=== PATIENT | female | born 1975 | race Caucasian/White ===

== ENCOUNTER 2017-03-12 07:55 | Emergency (ER) | payer OTHER ==
[2017-03-12 08:06] VITALS: BP 125/88
[2017-03-12] MEDS ORDERED: Fluorescein Sodium TOPICAL* 1 MG TEST ONE (09:14)
[2017-03-12] MEDS ORDERED: Tetracaine 0.5% OPTH.SOL 4 ML* 1 DROP BTL ONE (09:14)
[2017-03-12] MEDS ORDERED: BSS OPTH.SOL* BTL ONE (09:14)
[2017-03-12] MEDS ORDERED: HYDROcodone/ACETAMIN 5-325 MG* 1 TAB PO ONE (09:33)
--- NOTE | 2017-03-12 15:12 | UC ---
I, Masoud,Jim, scribed for Natali Bains DO on 03/12/17 at 0914 . Eye Complaint HPI - HPI Summary HPI Summary: This 41 y/o female presents to [facility] for 9/10 bilat eye pain since a day ago and worse since last night. Positive discharge, FB senstion, rhinorrhea, and mild cough. Pain was initially located in right eye, and now it is located bilat eyes. Negative sore throat or fever. Pt initially dismissed the discomfort as pink eye, but became concerned when pt attempted to wash eyes and was not able to open eyes due to pain. Eye movement, blinking, and even tear secretion make eye pain worse. She is still unable to open both eyes and is tearful at time of initial evaluation. PMHx includes DM type II and groin abscess. FHx is positive for DM. Pt is current heavy daily smoker. - History of Current Complaint Chief Complaint: UCEye Stated Complaint: EYE ISSUE Time Seen by Provider: 03/12/17 08:37 Hx Obtained From: Patient, Medical Records Hx Last Menstrual Period: 02/27 Onset/Duration: Gradual Onset, Still Present Timing: Constant Severity Initially: Moderate Severity Currently: Moderate Pain Intensity: 9 Pain Scale Used: 0-10 Numeric Location of Injury: Conjunctiva, Eye Lid (upper) Character: Sharp Aggravating Factor(s): Light, Blinking Alleviating Factor(s): Nothing Associated Signs And Symptoms: Positive: Photophobia, Drainage (Clear), Drainage (Purulent). Negative: Vision Impairment Bilateral, Fever, Swelling - Risk Factors Penetrating Injury Risk Factor: Negative - Allergies/Home Medications Allergies/Adverse Reactions: Allergies Allergy/AdvReac Type Severity Reaction Status Date / Time Fish Allergy Allergy Intermediate Hives Verified 05/14/16 19:38 PMH/Surg Hx/FS Hx/Imm Hx Endocrine History Of: Reports: Diabetes - type 2 since child Cardiovascular History Of: Denies: Hypertension, Congestive Heart Failure GI/ History Of: Denies: Renal Disease - Surgical History Surgical History: Yes Surgery Procedure, Year, and Place: tubal ligation - Family History Known Family History: Positive: Diabetes - positive to father Negative: Cardiac Disease, Hypertension - Social History Alcohol Use: None Substance Use Type: None Smoking Status (MU): Heavy Every Day Tobacco Smoker Amount Used/How Often: 1/2 ppd Have You Smoked in the Last Year: Yes Household Exposure Type: Cigarettes Cessation Counseling: Patient Advised to Stop Review of Systems Constitutional: Negative, Chills Skin: Negative Eyes: Negative ENT: Nasal Discharge, Other - eye pain bilat Respiratory: Cough Cardiovascular: Negative Gastrointestinal: Negative Genitourinary: Negative Motor: Negative Neurovascular: Negative Musculoskeletal: Negative Neurological: Negative Psychological: Negative All Other Systems Reviewed And Are Negative: Yes Physical Exam Triage Information Reviewed: Yes Appearance: Well-Appearing, Well-Nourished, Pain Distress - MOD Vital Signs: Initial Vital Signs Temp 97.5 F 03/12/17 08:01 Pulse 85 03/12/17 08:01 Resp 18 03/12/17 08:01 BP 125/88 03/12/17 08:01 Pulse Ox 97 03/12/17 08:01 Vital Signs Reviewed: Yes Eye Exam: Other - examined after tetracaine 0.5 %, which significantly alleviate the pain. Fluorescein stain exam indicates feint oval shape of stain uptake that does not move or change with blinking . Eyes: Positive: Conjunctiva Inflamed, Discharge - CLEAR ENT: Positive: Hearing grossly normal. Negative: Muffled/hoarse voice Neck exam: Normal Neck: Positive: Supple Respiratory: Positive: Lungs clear, Normal breath sounds, No respiratory distress Cardiovascular: Positive: RRR, No Murmur Musculoskeletal Exam: Normal Musculoskeletal: Positive: Strength Intact Neurological: Positive: Alert, Muscle Tone Normal Psychological: Positive: Age Appropriate Behavior Skin Exam: Normal Re-Evaluation - Re-Evaluation First Eval Re-Evaluation Time: 09:35 Comment: Plan of care involving outpatient follow up at [facility] at 1130 AM is discussed with pt, and she is agreeable. Eye Complaint Course/Dx - Course Course Of Treatment: Medication list reviewed and confirmed. - Differential Dx/Diagnosis Differential Diagnosis/HQI/PQRI: Conjunctivitis, Corneal Abrasion, Foreign Body , Uveitis Provider Diagnoses: CORNEAL ABRASION, CONJUNCTIVITS - Physician Notification/Consults Discussed Patient Care With: Dr. Bowles (Certified Fire Investigator) at 0925 AM Discharge - Discharge Plan Condition: Stable Disposition: HOME Patient Education Materials: Corneal Abrasion (ED), Eye Pain (ED), Conjunctivitis (ED) Referrals: Navjot Gonzalez MD [Primary Care Provider] - If Needed Adi Stallings MD [Medical Doctor] - (YOU HAVE AN APPOINTMENT AT 11:30AM TODAY FOR FURTHER EVALUATION.) Additional Instructions: Oral narcotic given: You've been given an oral narcotic pain medication. The effects may begin 30 minutes to an hour after swallowing the medicine. You should have significant pain relief. The effects will usually last at least four hours. Most oral narcotics contain a dose of acetaminophen (Tylenol). Don't take any other acetaminophen-containing medicines until you've discussed it with the doctor. This drug is a narcotic -- it will impair your judgment, slow your reaction time, and make you sleepy. Narcotics also can cause nausea and constipation. If you feel sick, you should eat. A full stomach reduces the nausea that pain pills can cause. You should not drive or work with machinery (including blenders, knives, lawn mowers or sewing machines) for six to eight hours. Don't do anything requiring mental alertness until the effects of the medication are gone. Do not take any alcohol or sedatives, and don't use any other medication without checking with your physician. The documentation as recorded by the Masoud juarez Soohyun accurately reflects the service I personally performed and the decisions made by me, Natali Bains DO.
== END 2017-03-12 09:45 | disposition home or self-care (01) ==
LOC: UCEAST 07:55
DX: S05.00XA Injury of conjunctiva and corneal abrasion without foreign body, unspecified eye, initial encounter (principal); H10.9 Unspecified conjunctivitis; X58.XXXA Exposure to other specified factors, initial encounter
CPT/HCPCS: 99212; A9270-GY; G0463

== ENCOUNTER 2017-05-23 03:49 | Emergency (ER) | payer OTHER ==
[2017-05-23] MEDS ORDERED: Ondansetron INJ* 2 MG/ML VIAL IV ONE (04:56)
[2017-05-23] MEDS ORDERED: HYDROmorphone* 1 MG/ML 1 ML SYR IV ONE (04:56)
[2017-05-23] MEDS ORDERED: NS 0.9% 1000 ML* 2,000 ML IV ONE (04:56)
[2017-05-23 05:30] LABS: Hematocrit 34 % (35-47); Hemoglobin 11.6 g/dl (12.0-16.0); Mean Corpuscular HGB Conc 34 g/dl (31-36); Mean Corpuscular Hemoglobin 30 pg (27-31); Mean Corpuscular Volume 88 fL (80-97); Mean Platelet Volume 7 um3 (7.4-10.4); Red Cell Distribution Width 14 % (10.5-15); White Blood Count 9.4 10^3/ul (3.5-10.8)
[2017-05-23 05:47] LABS: Albumin 3.2 g/dL (3.2-5.2); BUN/Creatinine Ratio 20.6 (8-20); C Reactive Protein 9.85 mg/L (< 5.00); Calcium 8.7 mg/dL (8.6-10.3); EGFR African American 134.6 (>60); EGFR Non-African American 104.7 (>60); Globulin 2.7 g/dL (2-4); Total Bilirubin 0.3 mg/dL (0.2-1.0); Total Protein 5.9 g/dL (6.4-8.9)
[2017-05-23] MEDS ORDERED: Iodixanol* (CONTRAST) 320 MG/ML 100 ML SDV IV ONE (05:49)
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
[2017-05-23 08:48] VITALS: BP 118/76
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
== END 2017-05-23 08:00 | disposition home or self-care (01) ==
LOC: ED 03:49
DX: E11.628 Type 2 diabetes mellitus with other skin complications (principal); L02.31 Cutaneous abscess of buttock; L03.317 Cellulitis of buttock; F17.210 Nicotine dependence, cigarettes, uncomplicated
CPT/HCPCS: 10060; 36415; 74177; 80053; 83605; 83690; 85025; 86140; 87070; 87205; 87640; 87641; 96360; 96374; 96375; 99283; J1170; J2405; J2543; Q9967

== ENCOUNTER 2017-05-24 13:22 | Emergency (ER) | payer OTHER ==
[2017-05-24 13:34] VITALS: BP 122/71
--- NOTE | 2017-05-24 14:27 | UC ---
Misti Pulliam Rebecca, scribed for Johnny Alexandre MD on 05/24/17 at 1353 . HPI Wound/Suture Re-check - HPI Summary HPI Summary: Pt is a 41 y/o F who presents to [facility] for a wound recheck. She was seen yesterday by [facility] and received Tx for a wound on the L buttock that began draining 2 days ago. The wound was drained and packed yesterday. Associated pain is currently moderate, ranked 6/10 and characterized as an ache. Pt reports the wound seems to be draining less now than it was previously. - History Of Current Complaint Chief Complaint: UCWounds Stated Complaint: WOUND RECHECK Time Seen by Provider: 05/24/17 13:52 Hx Obtained From: Patient Hx Last Menstrual Period: 05/15/17 Onset/Duration: Lasting Days - Draining for 2 days, Still Present Surgical Site: L buttock Severity: Moderate Pain Intensity: 6 Pain Scale Used: 0-10 Numeric Procedure Type: Wound was packed yesterday - Allergies/Home Medications Allergies/Adverse Reactions: Allergies Allergy/AdvReac Type Severity Reaction Status Date / Time Fish Allergy Allergy Intermediate Hives Verified 05/24/17 13:34 Home Medications: Home Medications SitaGLIPtin (NF) [Januvia (NF)] 25 mg 05/24/17 [History] Sulfamethox/Trimethoprim SS* [Bactrim SS 400/80 TAB*] 1 tab PO DAILY 05/24/17 [ History Confirmed 05/24/17] PMH/Surg Hx/FS Hx/Imm Hx - Additional Past Medical History Additional PMH: No PMHx HTN, CAD. Endocrine History: Diabetes - Surgical History Surgical History: Yes Surgery Procedure, Year, and Place: tubal ligation. right foot - Family History Known Family History: Positive: Diabetes - positive to father Negative: Cardiac Disease, Hypertension - Social History Alcohol Use: Rare Substance Use Type: Marijuana Smoking Status (MU): Heavy Every Day Tobacco Smoker Amount Used/How Often: 1/2 ppd Have You Smoked in the Last Year: Yes Household Exposure Type: Cigarettes Review of Systems Constitutional: Negative Skin: Other - Wound recheck on the L buttock Eyes: Negative ENT: Negative Respiratory: Negative Cardiovascular: Negative Gastrointestinal: Negative Genitourinary: Negative Motor: Negative Neurovascular: Negative Musculoskeletal: Negative Neurological: Negative Psychological: Negative All Other Systems Reviewed And Are Negative: Yes Physical Exam Triage Information Reviewed: Yes Vital Signs: Initial Vital Signs Temp 97.6 F 05/24/17 13:29 Pulse 110 05/24/17 13:29 Resp 20 05/24/17 13:29 BP 122/71 05/24/17 13:29 Pulse Ox 100 05/24/17 13:29 Vital Signs Reviewed: Yes - Additional Comments The patient is well-nourished in no acute distress and in no acute pain. The skin is warm and dry and skin color reflects adequate perfusion. HEENT: The head is normocephalic and atraumatic. The pupils are equal and reactive. The conjunctivae are clear and without drainage. Respiratory: Chest is non-tender. Lungs are clear to auscultation and breath sounds are symmetrical and equal. Cardiovascular: Hear is regular rate and rhythm. There is no murmur or rub auscultated. There is no peripheral edema and pulses are symmetrical and equal. Musculoskeletal: There is no back pain noted. Extremities are non-tender with full range of motion. There is good capillary refill. Examination of buttock abscess: packing was removed. There is still minor purulent drainage from the wound. No erythema, is non-tender and started to heal. No cellulitis. Does not appear to be any collections of fluid. Neurological: Patient is alert and oriented to person, place and time. The patient has symmetrical motor strength in all four extremities. Psychiatric: The patient has an appropriate affect and does not exhibit any anxiety or depression. Course/Dx - Course Course Of Treatment: Pt is a 41 y/o F who presents to [facility] for a wound recheck. She was seen yesterday by [facility] and received Tx for a wound on the L buttock that began draining 2 days ago. The wound was drained and packed yesterday. Associated pain is currently moderate, ranked 6/10 and characterized as an ache. Pt reports the wound seems to be draining less now than it was previously. Will be put on a wet to dry dressing which she can do 3-4 times a day after warm soaks. She will be D/C to home with Dx of abscess, L buttock secondary to wound infection, healing with directions to continue Augmentin and pain medications and follow up with Dr. Vivar. She understands and agrees. Patient medications reviewed this visit. - Differential Dx - Laceration/Wound Differential Diagnoses: Abscess, Healing Wound Provider Diagnoses: Abscess, L buttock secondary to wound infection, healing. Discharge - Discharge Plan Condition: Stable Disposition: HOME Patient Education Materials: Abscess (ED) Referrals: Sharan Vivar MD [Medical Doctor] - (Follow up with Dr. Vivar in the next 1-2 days. ) Additional Instructions: Soak the wound with a warm cloth 3-4 times per day. Continue with Augmentin and pain medication. The documentation as recorded by the Misti juarez Rebecca accurately reflects the service I personally performed and the decisions made by , Johnny Alexandre MD.
== END 2017-05-24 14:08 | disposition home or self-care (01) ==
LOC: UCEAST 13:22
DX: Z51.89 Encounter for other specified aftercare (principal); L02.31 Cutaneous abscess of buttock; E11.9 Type 2 diabetes mellitus without complications; Z79.84 Long term (current) use of oral hypoglycemic drugs; Z72.0 Tobacco use
CPT/HCPCS: 99211; G0463

== ENCOUNTER 2017-06-04 15:12 | Emergency (ER) | payer OTHER ==
[2017-06-04 15:29] VITALS: BP 112/72
--- NOTE | 2017-06-04 16:13 | RAD ---
INDICATION: Right ankle fractures status post removal of cast. COMPARISON: There are no prior studies available for comparison. TECHNIQUE: 3 views of the right ankle were obtained. FINDINGS: There is diffuse soft tissue swelling. There is a small focal area of irregularity along the anterior articular surface of the distal tibia possibly representing a nondisplaced fracture. There also appears to be a small avulsion fracture fragment arising from the medial surface of the talus. No other fractures are seen. Joint spaces appear maintained. IMPRESSION: 1. SOFT TISSUE SWELLING. 2. POSSIBLE NONDISPLACED FRACTURE INVOLVING THE ANTERIOR DISTAL TIBIA. 3. SMALL AVULSION FRACTURE FRAGMENT ARISING FROM THE MEDIAL TALUS.
--- NOTE | 2017-06-19 14:47 | UC ---
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--- - History of Current Complaint Chief Complaint: UCLowerExtremity Stated Complaint: RIGHT FOOT COMPLAINT Time Seen by Provider: 06/04/17 15:32 Hx Obtained From: Patient Hx Last Menstrual Period: 05/15/17 ?: No Onset/Duration: Sudden Onset Severity Initially: Moderate Severity Currently: Moderate Pain Intensity: 4 Pain Scale Used: 0-10 Numeric Aggravating Factor(s): Standing, Ambulation Alleviating Factor(s): Rest, Elevation Able to Bear Weight: No - Allergies/Home Medications Allergies/Adverse Reactions: Allergies Allergy/AdvReac Type Severity Reaction Status Date / Time Fish Allergy Allergy Intermediate Hives Verified 05/24/17 13:34 PMH/Surg Hx/FS Hx/Imm Hx Previously Healthy: No Endocrine History: Diabetes - Surgical History Surgical History: Yes Surgery Procedure, Year, and Place: tubal ligation. right foot - Family History Known Family History: Positive: Diabetes - positive to father Negative: Cardiac Disease, Hypertension - Social History Occupation: Disabled Lives: With Family Alcohol Use: Rare Substance Use Type: Marijuana Smoking Status (MU): Heavy Every Day Tobacco Smoker Amount Used/How Often: 1/2 ppd Have You Smoked in the Last Year: Yes Household Exposure Type: Cigarettes Review of Systems Constitutional: Negative Skin: Negative Eyes: Negative ENT: Negative Respiratory: Negative Cardiovascular: Negative Gastrointestinal: Negative Genitourinary: Negative Motor: Negative Neurovascular: Negative Musculoskeletal: Arthralgia - right ankle pain Neurological: Negative Psychological: Negative All Other Systems Reviewed And Are Negative: Yes Physical Exam Triage Information Reviewed: Yes Appearance: Well-Appearing, No Pain Distress, Well-Nourished Vital Signs: Initial Vital Signs Temp 98.5 F 06/04/17 15:25 Pulse 105 06/04/17 15:25 Resp 18 06/04/17 15:25 BP 112/72 06/04/17 15:25 Pulse Ox 99 06/04/17 15:25 Vital Signs Reviewed: Yes Eye Exam: Normal Eyes: Positive: Conjunctiva Clear ENT Exam: Normal ENT: Positive: Normal ENT inspection, Hearing grossly normal. Negative: Nasal congestion, Nasal drainage, Trismus, Muffled/hoarse voice Dental Exam: Normal Neck exam: Normal Neck: Positive: Supple, Nontender Respiratory Exam: Normal Respiratory: Positive: Chest non-tender, Lungs clear, Normal breath sounds, No respiratory distress, No accessory muscle use Cardiovascular Exam: Normal Cardiovascular: Positive: RRR, No Murmur, Pulses Normal, Brisk Capillary Refill Musculoskeletal Exam: Normal Musculoskeletal: Positive: No Edema, Strength Limited @ - right ankle, ROM Limited @ - right ankle Neurological Exam: Normal Neurological: Positive: Alert, Muscle Tone Normal Psychological Exam: Normal Skin Exam: Normal Diagnostics - Laboratory ABG Interpretation: avulsion fx right ankle Lower Extremity Course/Dx - Course Course Of Treatment: cam boot, continue NWB pain med as rx follow with ortho as planned - Differential Dx/Diagnosis Differential Diagnosis/HQI/PQRI: Fracture (Closed), Other - chemical exposure right lower leg Provider Diagnoses: chemical exposure right leg, avulsion fx right fib. cast replacement Discharge - Discharge Plan Condition: Stable Disposition: HOME Patient Education Materials: Avulsion Fracture (ED) Referrals: Navjot Gonzalez MD [Primary Care Provider] - Frank Pham MD [Medical Doctor] - 06/05/17 Additional Instructions: Continue non-weight bearing
== END 2017-06-04 16:36 | disposition home or self-care (01) ==
LOC: UCEAST 15:12
DX: Z77.098 Contact with and (suspected) exposure to other hazardous, chiefly nonmedicinal, chemicals (principal); S92.191D Other fracture of right talus, subsequent encounter for fracture with routine healing; X58.XXXD Exposure to other specified factors, subsequent encounter; Z46.89 Encounter for fitting and adjustment of other specified devices; E11.9 Type 2 diabetes mellitus without complications; Z91.013 Allergy to seafood; F17.210 Nicotine dependence, cigarettes, uncomplicated
CPT/HCPCS: 99211; G0463

== ENCOUNTER 2018-12-23 14:40 | Emergency (ER) | payer OTHER ==
[2018-12-23 14:58] VITALS: BP 133/92
[2018-12-23] MEDS ORDERED: Bupivacaine 0.25% SDV* 30 ML INJ ONE ×2 (15:34→15:45)
[2018-12-23] MEDS ORDERED: ceFAZolin 500 MG VIAL(*) 500 MG VIAL IM ONE (15:37)
[2018-12-23] MEDS ORDERED: Bupivacaine 0.25% SDV PF* 10 ML VIAL INJ ONE (15:41)
--- NOTE | 2018-12-23 15:52 | ED ---
Skin Complaint - HPI Summary HPI Summary: 43 yo WF h/o DM , smoker p/w right forearm 4x3cm skin abscess x 1 week associated with moderate to severe tenderness. Pt has been non-compliant with her Januvia x 1 month and states her sugars may be in the 400's - History of Current Complaint Chief Complaint: UCSkin Time Seen by Provider: 12/23/18 15:05 Stated Complaint: SORE ON ARM Hx Obtained From: Patient Hx Last Menstrual Period: 12/17/18 Onset/Duration: Started Weeks Ago Skin Exposure Onset/Duration: Days Ago Timing: Lasting Days Onset Severity: Moderate Current Severity: Severe Pain Intensity: 7 - Allergy/Home Medications Allergies/Adverse Reactions: Allergies Allergy/AdvReac Type Severity Reaction Status Date / Time MS Fish Allergy Allergy Intermediate Hives Verified 05/24/17 13:34 Home Medications: Home Medications ARIPiprazole TAB* [Abilify 20 MG TAB*] 10 mg PO DAILY 12/23/18 [History Confirmed 12/23/18] Ibuprofen 400 mg PO Q4HR PRN 12/23/18 [History Confirmed 12/23/18] LORazepam [Lorazepam] 1 mg PO DAILY 12/23/18 [History Confirmed 12/23/18] PMH/Surg Hx/FS Hx/Imm Hx Previously Healthy: Yes Endocrine/Hematology History: Reports: 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 right foot - Immunization History Date of Tetanus Vaccine: PT STATES UNSURE Date of Influenza Vaccine: NONE Infectious Disease History: No Infectious Disease History: Denies: Hx Clostridium Difficile, Hx Hepatitis, Hx Human Immunodeficiency Virus (HIV), Hx of Known/Suspected MRSA, Hx Shingles, Hx Tuberculosis, Hx Known/ Suspected VRE, Hx Known/Suspected VRSA, History Other Infectious Disease, Traveled Outside the [place] in Last 30 Days - Family History Known Family History: Positive: Diabetes - positive to father Negative: Cardiac Disease, Hypertension - Social History Alcohol Use: None Substance Use Type: Reports: None Smoking Status (MU): Heavy Every Day Tobacco Smoker Amount Used/How Often: 1 ppd Have You Smoked in the Last Year: Yes Review of Systems - ROS Summary Review of Systems Summary: Constitutional: Negative Eyes: Negative ENT: Negative Cardiovascular: Negative Respiratory: Negative Gastrointestinal: Negative Genitourinary: Negative Musculoskeletal: Negative Neurological: Negative Psychological: Normal Skin:Skin abscess on right forearm All Other Systems Reviewed And Are Negative: Yes All Other Systems Reviewed And Are Negative: Yes Physical Exam - Summary Physical Exam Summary: Vital Signs Reviewed: Yes Skin: Positive: 4x3cm skin abscess on flexor surface of right forearm, mild fluctuance. hot, red, TTP Head/Face: Positive: Normal Head/Face Inspection Eyes: Positive: Normal ENT: Positive: Normal ENT inspection Neck: Positive: Supple Respiratory/Lung Sounds: Positive: Clear to Auscultation Cardiovascular: Positive: Normal, RRR, S1, S2 Abdomen Description: Positive: Nontender Musculoskeletal: Positive: Normal Neurological: Positive: Normal Psychiatric: Positive: Normal, Affect/Mood Appropriate Vital Signs On Initial Exam: Initial Vitals Temp Pulse Resp BP Pulse Ox 36.7 C 92 18 133/92 98 12/23/18 14:50 12/23/18 14:50 12/23/18 14:50 12/23/18 14:50 12/23/18 14:50 Procedures - Incision and Drainage Right Arm Site: Right forearm- flexor surface Anesthesia: Local - bupivacaine Instrument(s): Scalpel Packing: Gauze Diagnostics - Vital Signs Vital Signs Temp Pulse Resp BP Pulse Ox 12/23/18 14:50 36.7 C 92 18 133/92 98 - Laboratory Lab Statement: Any lab studies that have been ordered have been reviewed, and results considered in the medical decision making process. Course/Dx - Diagnoses Provider Diagnoses: Abscess, Right forearm cellulitis Discharge - Sign-Out/Discharge Documenting (check all that apply): Patient Departure All imaging exams completed and their final reports reviewed: No Studies - Discharge Plan Condition: Stable Disposition: HOME Prescriptions: Naproxen [Naproxen 500 mg tab] 500 mg PO BID 10 Days #20 tablet. Sulfamethox/Trimethoprim DS* [Bactrim DS 800/160 TAB*] 1 tab PO BID 10 Days #20 tab Patient Education Materials: Abscess (ED) Referrals: Navjot Gonzalez MD [Primary Care Provider] - Additional Instructions: follow up for wound-check in 2 days - Billing Disposition and Condition Condition: STABLE Disposition: Home
[2018-12-23] MEDS ORDERED: HYDROcodone/ACETAMIN 5-325 MG* 1 TAB PO ONE (16:18)
== END 2018-12-23 16:40 | disposition home or self-care (01) ==
LOC: UCEAST 14:40
DX: L02.413 Cutaneous abscess of right upper limb (principal); L03.113 Cellulitis of right upper limb; F17.210 Nicotine dependence, cigarettes, uncomplicated; E11.9 Type 2 diabetes mellitus without complications
CPT/HCPCS: 10060; 96372; 99212; G0463; J0690; J3490

== ENCOUNTER 2018-12-25 12:38 | Emergency (ER) | payer OTHER ==
--- NOTE | 2018-12-25 12:47 | UC ---
Skin Complaint HPI - HPI Summary HPI Summary: 43 yo female presents for right arm wound recheck. She tells me that she had an abscess I&D'd here 2 days ago that had packing placed. She tells me that she has had some drainage from the site and pain, but pain is controlled well with ibuprofen. Has been taking her Bactrim and changing the dressing daily. Denies fever or chills - History of Current Complaint Time Seen by Provider: 12/25/18 12:47 Stated Complaint: WOUND CHECK Hx Obtained From: Patient Hx Last Menstrual Period: 12/17/18 Onset Severity: Moderate Current Severity: Moderate Pain Intensity: 5 Pain Scale Used: 0-10 Numeric - Allergy/Home Medications Allergies/Adverse Reactions: Allergies Allergy/AdvReac Type Severity Reaction Status Date / Time fish Allergy Intermediate Hives Uncoded 12/25/18 12:56 PMH/Surg Hx/FS Hx/Imm Hx Endocrine History: Diabetes Psychological History: Anxiety, Depression - Surgical History Surgical History: Yes Surgery Procedure, Year, and Place: tubal ligation. right foot - Family History Known Family History: Positive: Diabetes - positive to father Negative: Cardiac Disease, Hypertension - Social History Occupation: Employed Full-time Lives: With Family Alcohol Use: None Substance Use Type: None Smoking Status (MU): Heavy Every Day Tobacco Smoker Amount Used/How Often: 1 ppd Have You Smoked in the Last Year: Yes Household Exposure Type: Cigarettes Review of Systems All Other Systems Reviewed And Are Negative: Yes Constitutional: Positive: Negative Skin: Positive: Other - Wound right arm Respiratory: Positive: Negative Cardiovascular: Positive: Negative Neurovascular: Positive: Negative Neurological: Positive: Negative Psychological: Positive: Negative Physical Exam - Summary Physical Exam Summary: GENERAL: NAD. WDWN. No pain distress. SKIN: RIGHT forearm: 1.0cm linear open wound with packing in place. Scant yellow /bloody drainage. Mild surrounding erythema without warmth, streaking, or induration. NECK: Supple. Nontender. No lymphadenopathy. CHEST: No accessory muscle use. Breathing comfortably and in no distress. CV: Pulses intact. Cap refill <2seconds NEURO: Alert. PSYCH: Age appropriate behavior. Triage Information Reviewed: Yes Vital Signs: Vital Signs: Temp Pulse Resp BP Pulse Ox 97.8 F 90 16 142/82 100 12/25/18 12:49 12/25/18 12:49 12/25/18 12:49 12/25/18 12:49 12/25/18 12:49 Vital Signs Reviewed: Yes Course/Dx - Course Course Of Treatment: Packing removed without difficulty. Wound redressed with telfa. Advised to continue anbx and change dressing daily until well healed. Return for recheck if not improving or if develops fever, chills, increased pain , redness, or swelling. - Diagnoses Provider Diagnosis: Abscess of right arm Discharge - Sign-Out/Discharge Documenting (check all that apply): Patient Departure All imaging exams completed and their final reports reviewed: No Studies - Discharge Plan Condition: Stable Disposition: HOME Patient Education Materials: Acute Wound Care (ED), Abscess (ED) Referrals: Navjot Gonzalez MD [Primary Care Provider] - Additional Instructions: If you develop a fever, shortness of breath, chest pain, new or worsening symptoms - please call your PCP or go to the ED. Your blood pressure was mildly elevated at todays visit. Please see your primary provider within 4 weeks for recheck and re-evaluation. 1) Change the dressing daily and keep dry 2) Return for a recheck in 4-5 days if you are concerned about it's improvement - Billing Disposition and Condition Condition: STABLE Disposition: Home
[2018-12-25 12:55] VITALS: BP 142/82
== END 2018-12-25 13:22 | disposition home or self-care (01) ==
LOC: UCEAST 12:38
DX: L02.413 Cutaneous abscess of right upper limb (principal); E11.9 Type 2 diabetes mellitus without complications; Z79.4 Long term (current) use of insulin; F41.9 Anxiety disorder, unspecified; F32.9 Major depressive disorder, single episode, unspecified; Z91.013 Allergy to seafood; F17.210 Nicotine dependence, cigarettes, uncomplicated
CPT/HCPCS: 99212; G0463